=== PATIENT | female | born 1955 | race African-American/Black ===

== ENCOUNTER 2020-04-15 17:34 | Inpatient (IN) | payer MEDICARE, MEDICAID ==
[~2020-04-15] VITALS: Ht 165.1 cm; Wt 81.6 kg
[~2020-04-15 17:34] MED LIST: ALLO100T PO; AMLO10TA80 PO; CALC ACETATE PO; CLONIDINE; CORREG; INSLAN SQ; INSU100C11 SQ; INSULIN; LASIX; LORA10TA7 PO; REN800 PO; SEVE800T8 PO
[2020-04-15] MEDS ORDERED: SODIUM CHLORIDE 0.9% 500 ML IV ONE (18:26)
[2020-04-15 19:13] LABS: HEMOGLOBIN. 9.6 g/dL (12.0-16.0); MEAN CORPUSCULAR HEMOGLOBIN 29.5 pg (28.0-32.0); MEAN CORPUSCULAR VOLUME 92.3 fL (81.0-99.0); MEAN PLATELET VOLUME 9.2 fl (7.4-10.4); PLATELET 139 x1000/uL (130-400); RED BLOOD CELL COUNT 3.25 mill/uL (4.2-5.4); RED CELL DISTRIBUTION WIDTH 18.7 % (11.6-14.6)
[2020-04-15 19:18] LABS: CHLORIDE 97 mEq/L (98-107)
[2020-04-15 19:35] LABS: PROTHROMBIN TIME 10.3 sec (9.6-11.0)
[2020-04-15] MEDS ORDERED: POTASSIUM CHLORIDE 20MEQ TABLET SR PO NR (20:00)
[2020-04-15 20:13] LABS: PLATELET ESTIMATE NORMAL
[2020-04-16] VITALS (10 sets, daily range): BP systolic 80–143; BP diastolic 36–95
[2020-04-16] MEDS ORDERED: DOCUSATE SODIUM 100MG CAPSULE PO PRN (00:15)
[2020-04-16] MEDS ORDERED: CLONIDINE 0.1MG TABLET PO PRN (00:15)
[2020-04-16] MEDS ORDERED: HYDROCODONE/ACETAMINOPHEN 5/325MG TABLET PO PRN (00:15)
[2020-04-16] MEDS ORDERED: ONDANSETRON HCL 4MG/2ML INJ IV PRN (00:15)
[2020-04-16] MEDS ORDERED: ACETAMINOPHEN 325MG TABLET PO PRN (00:15)
[2020-04-16] MEDS ORDERED: IPRATROPIUM/ALBUTEROL 0.5-3(2.5)MG/3ML NEB NEB PRN (00:15)
[2020-04-16] MEDS ORDERED: DEXTROSE 50% WATER 50ML SYRINGE IV PRN (03:45)
[2020-04-16 07:11] LABS: CREATINE KINASE MB FRACTION 1.4 ng/mL (0.5-3.6)
[2020-04-16] MEDS: BLOOD SUGAR DIAGNOSTIC STRIP TEST SCH ×3 (07:20→21:32)
[2020-04-16] MEDS: INSULIN LISPRO 100 UNITS/ML SUBCUT SCH ×3 (07:50→21:40)
[2020-04-16] MEDS: HEPARIN 5000 UNITS/ML VIAL SUBCUT SCH ×2 (10:53→21:38)
[2020-04-16 11:28] LABS: PHOSPHORUS 6.1 mg/dL (2.5-4.9)
[2020-04-16 17:15] LABS: CREATINE KINASE MB FRACTION 1.2 ng/mL (0.5-3.6)
[2020-04-16] MEDS: LORATADINE 10MG TABLET PO SCH (21:38)
[2020-04-16] MEDS: ATORVASTATIN CALCIUM 20MG TABLET PO SCH (21:39)
[2020-04-17] VITALS (9 sets, daily range): BP systolic 88–140; BP diastolic 41–89
[2020-04-17 06:10] LABS: BASOPHILS % 0.7 % (0.0-2.0); HEMATOCRIT. 30.9 % (36.0-48.0); HEMOGLOBIN. 9.6 g/dL (12.0-16.0); LYMPHOCYTES % 9.7 % (20.0-50.0); MEAN CORPUSCULAR HEMOGLOBIN 29.6 pg (28.0-32.0); MEAN CORPUSCULAR VOLUME 95.1 fL (81.0-99.0); MEAN PLATELET VOLUME 9.8 fl (7.4-10.4); MONOCYTES % 14.4 % (2.0-8.0); NEUTROPHILS % 74.2 % (40.0-76.0); PLATELET 169 x1000/uL (130-400); RED BLOOD CELL COUNT 3.24 mill/uL (4.2-5.4); RED CELL DISTRIBUTION WIDTH 18.9 % (11.6-14.6)
[2020-04-17 06:15] LABS: VITAMIN B12 SERUM 1443 pg/mL (211-911)
[2020-04-17 06:24] LABS: FERRITIN 1161 ng/mL (10-291)
[2020-04-17 06:28] LABS: FOLIC ACID (FOLATE) SERUM > 20.00 ng/mL (>5.38)
[2020-04-17] MEDS: BLOOD SUGAR DIAGNOSTIC STRIP TEST SCH ×4 (07:20→21:49)
[2020-04-17] MEDS: INSULIN LISPRO 100 UNITS/ML SUBCUT SCH ×4 (07:47→21:00)
[2020-04-17] MEDS: ASPIRIN 81MG TABLET PO SCH (08:03)
[2020-04-17] MEDS: AMLODIPINE 10MG TABLET PO SCH (08:04)
[2020-04-17] MEDS: ALLOPURINOL 100 MG TABLET PO SCH (08:04)
[2020-04-17] MEDS: HEPARIN 5000 UNITS/ML VIAL SUBCUT SCH ×2 (08:04→21:49)
[2020-04-17] MEDS: FOLIC ACID/VITAMIN B COMP W-C TABLET PO SCH (11:30)
[2020-04-17] MEDS: SEVELAMER CARBONATE 800 MG TABLET PO SCH ×2 (11:50→17:43)
[2020-04-17] MEDS: FERROUS SULFATE 325MG TABLET PO SCH (17:42)
[2020-04-17 18:13] LABS: TOTAL IRON BINDING CAPACITY 370 ug/dL (250-450)
[2020-04-17] MEDS: ATORVASTATIN CALCIUM 20MG TABLET PO SCH (21:49)
[2020-04-17] MEDS: LORATADINE 10MG TABLET PO SCH (21:49)
[2020-04-18 00:25] VITALS: BP 109/51
[2020-04-18 04:42] VITALS: BP 107/72
[2020-04-18] MEDS: BLOOD SUGAR DIAGNOSTIC STRIP TEST SCH ×3 (07:45→17:20)
[2020-04-18 08:06] VITALS: BP 116/45
[2020-04-18] MEDS: INSULIN LISPRO 100 UNITS/ML SUBCUT SCH ×3 (08:12→17:38)
[2020-04-18] MEDS: FERROUS SULFATE 325MG TABLET PO SCH ×2 (08:20→17:38)
[2020-04-18] MEDS: SEVELAMER CARBONATE 800 MG TABLET PO SCH ×3 (08:20→17:38)
[2020-04-18] MEDS: HEPARIN 5000 UNITS/ML VIAL SUBCUT SCH (08:38)
[2020-04-18] MEDS: ASPIRIN 81MG TABLET PO SCH (08:39)
[2020-04-18] MEDS: FOLIC ACID/VITAMIN B COMP W-C TABLET PO SCH (08:39)
[2020-04-18] MEDS: AMLODIPINE 10MG TABLET PO SCH (08:48)
[2020-04-18] MEDS: ALLOPURINOL 100 MG TABLET PO SCH (08:56)
[2020-04-18 12:00] VITALS: BP 104/72
[2020-04-18] MEDS ORDERED: ATOR20TA PO (14:28)
[2020-04-18] MEDS ORDERED: ASPI-1160 PO (14:28)
[2020-04-18] MEDS ORDERED: FERR325T23 PO (14:28)
[2020-04-18] MEDS ORDERED: NEPVIT PO (14:28)
[2020-04-18 16:10] VITALS: BP 162/62
[2020-04-18 17:20] VITALS: BP 162/62
[2020-04-18] MEDS ORDERED: EPOETIN ALFA 4000UNITS/ML VIAL SUBCUT SCH (21:00)
== END 2020-04-18 17:40 | disposition home or self-care (01) | DRG 73 ==
LOC: ER 17:34 → 6WST 20:16 → EDBEDREQTM 20:17 → EDBEDREQ 20:17 → ENRESERV 20:52
PROVIDERS: ADMIT Internal Medicine; ATTEND Internal Medicine
PROC: 5A1D70Z Performance of Urinary Filtration, Intermittent, Less than 6 Hours Per Day (ICD-10-PCS; principal; 2020-04-18)
DX: G90.8 Other disorders of autonomic nervous system (principal); N18.6 End stage renal disease; I13.2 Hypertensive heart and chronic kidney disease with heart failure and with stage 5 chronic kidney disease, or end stage renal disease; I50.30 Unspecified diastolic (congestive) heart failure; J81.1 Chronic pulmonary edema; I95.3 Hypotension of hemodialysis; E11.22 Type 2 diabetes mellitus with diabetic chronic kidney disease; E87.6 Hypokalemia; E78.5 Hyperlipidemia, unspecified; E83.39 Other disorders of phosphorus metabolism; I35.1 Nonrheumatic aortic (valve) insufficiency; I27.21 Secondary pulmonary arterial hypertension; I07.1 Rheumatic tricuspid insufficiency; I45.10 Unspecified right bundle-branch block; I70.0 Atherosclerosis of aorta; D64.9 Anemia, unspecified; E78.00 Pure hypercholesterolemia, unspecified; G40.909 Epilepsy, unspecified, not intractable, without status epilepticus; I27.20 Pulmonary hypertension, unspecified; Z79.4 Long term (current) use of insulin; Z99.2 Dependence on renal dialysis; Z86.73 Personal history of transient ischemic attack (TIA), and cerebral infarction without residual deficits; Z79.899 Other long term (current) drug therapy
CPT/HCPCS: 36415; 70551; 71045; 80048; 80053; 80061; 82550; 82553; 82607; 82728; 82746; 82962; 83036; 83540; 83550; 84100; 84443; 84484; 85025; 93005; 93306; 93880; 93970; 95816; 99285; J0885; J1644; J1815; J7030

== ENCOUNTER 2020-05-09 11:29 | Inpatient (IN) | payer MEDICARE, MEDICAID ==
[~2020-05-09] VITALS: Ht 165.1 cm; Wt 64.2 kg
[~2020-05-09 11:29] MED LIST changes: +ASPI-1160 PO; +ATOR20TA PO; -CLONIDINE; +FERR325T23 PO; -INSULIN; +NEPVIT PO; -REN800 PO
[2020-05-09 12:51] LABS: BASOPHILS % 0.9 % (0.0-2.0); EOSINOPHILS % 1.9 % (0.0-5.0); HEMATOCRIT. 35.1 % (36.0-48.0); HEMOGLOBIN. 10.2 g/dL (12.0-16.0); LYMPHOCYTES % 15.3 % (20.0-50.0); MEAN CORPUSCULAR HEMOGLOBIN 30.7 pg (28.0-32.0); MEAN CORPUSCULAR VOLUME 105.3 fL (81.0-99.0); MEAN PLATELET VOLUME 10.3 fl (7.4-10.4); MONOCYTES % 10.3 % (2.0-8.0); NEUTROPHILS % 71.6 % (40.0-76.0); PLATELET 209 x1000/uL (130-400); RED BLOOD CELL COUNT 3.33 mill/uL (4.2-5.4); RED CELL DISTRIBUTION WIDTH 21.3 % (11.6-14.6)
[2020-05-09 13:34] LABS: CHLORIDE 103 mEq/L (98-107)
[2020-05-09] MEDS ORDERED: DEXTROSE 50% WATER 50ML SYRINGE IV ONE (14:00)
[2020-05-09] MEDS ORDERED: INSULIN REGULAR (HUMULIN R) 300UNITS/3ML IV ONE (14:00)
[2020-05-09] MEDS ORDERED: CALCIUM GLUCONATE 100MG/ML 10ML VIAL IV NR (14:00)
[2020-05-09] MEDS ORDERED: SODIUM BICARBONATE 8.4% 1 MEQ/ML 50ML SYR IV ONE (14:00)
[2020-05-09] MEDS ORDERED: LEVOFLOXACIN 750MG PREMIX 150 ML IV NR (14:00)
[2020-05-09] MEDS ORDERED: ALBUTEROL (0.083%) 2.5MG/3ML NEB HHN ONE (14:00)
[2020-05-09 15:30] VITALS: BP 147/81
[2020-05-09] MEDS ORDERED: CLONIDINE 0.1MG TABLET PO PRN (17:15)
[2020-05-09] MEDS ORDERED: ACETAMINOPHEN 325MG TABLET PO PRN (17:15)
[2020-05-09] MEDS ORDERED: ONDANSETRON HCL 4MG/2ML INJ IV PRN (18:30)
[2020-05-09 18:32] VITALS: BP 145/81
[2020-05-09] MEDS: GUAIFENESIN-DM 200MG-20MG/10ML UDC PO PRN (19:08)
[2020-05-09 20:00] VITALS: BP 155/57
[2020-05-10] VITALS: BP 120/64
[2020-05-10 04:00] VITALS: BP 129/73
[2020-05-10 08:00] VITALS: BP 140/59
[2020-05-10] MEDS: GUAIFENESIN-DM 200MG-20MG/10ML UDC PO PRN (08:19)
[2020-05-10 12:00] VITALS: BP 140/54
[2020-05-10] MEDS ORDERED: DEXTROSE 50% WATER 50ML SYRINGE IV PRN (12:15)
[2020-05-10] MEDS ORDERED: SEVELAMER CARBONATE 800 MG TABLET PO SCH (12:15)
[2020-05-10] MEDS ORDERED: INSULIN LISPRO 100 UNITS/ML SUBCUT SCH (12:15)
[2020-05-10] MEDS ORDERED: INSULIN GLARGINE UD 100 UNITS/ML SYR SUBCUT NR (14:00)
[2020-05-10 14:22] VITALS: BP 140/54
[2020-05-10] MEDS ORDERED: BLOOD SUGAR DIAGNOSTIC STRIP TEST SCH (16:45)
[2020-05-11] MEDS ORDERED: INSULIN GLARGINE UD 100 UNITS/ML SYR SUBCUT SCH (10:00)
== END 2020-05-10 15:40 | disposition home or self-care (01) | DRG 640 ==
LOC: ER 11:29 → EDBEDREQ 15:09 → 5WST 15:11 → ENRESERV 15:31
PROVIDERS: ADMIT Internal Medicine; ATTEND Internal Medicine
PROC: 5A1D70Z Performance of Urinary Filtration, Intermittent, Less than 6 Hours Per Day (ICD-10-PCS; principal; 2020-05-09)
DX: E87.5 Hyperkalemia (principal); N18.6 End stage renal disease; I13.2 Hypertensive heart and chronic kidney disease with heart failure and with stage 5 chronic kidney disease, or end stage renal disease; J98.11 Atelectasis; E87.2 Acidosis; E78.00 Pure hypercholesterolemia, unspecified; E78.5 Hyperlipidemia, unspecified; D64.9 Anemia, unspecified; E83.52 Hypercalcemia; I27.21 Secondary pulmonary arterial hypertension; E11.22 Type 2 diabetes mellitus with diabetic chronic kidney disease; I45.10 Unspecified right bundle-branch block; I36.1 Nonrheumatic tricuspid (valve) insufficiency; R74.0 Nonspecific elevation of levels of transaminase and lactic acid dehydrogenase [LDH]; I50.9 Heart failure, unspecified; Z99.2 Dependence on renal dialysis; Z79.82 Long term (current) use of aspirin; Z79.4 Long term (current) use of insulin; Z79.899 Other long term (current) drug therapy; R06.89 Other abnormalities of breathing
CPT/HCPCS: 36415; 71045; 80048; 80053; 80061; 82962; 83735; 83880; 84484; 85025; 93005; 96374; 99285; J0610; J1815; J1956; J3490

== ENCOUNTER 2021-08-14 07:19 | Inpatient (IN) | payer OTHER, MEDICAID ==
[~2021-08-14] VITALS: Ht 165.1 cm; Wt 75.9 kg
[~2021-08-14 07:19] MED LIST changes: -ALLO100T PO; -AMLO10TA80 PO; -ASPI-1160 PO; -ATOR20TA PO; -CORREG; -FERR325T23 PO; -LASIX; -LORA10TA7 PO; -NEPVIT PO
[2021-08-14] MEDS ORDERED: SODIUM CHLORIDE 0.9% 1,000 ML IV ONE (08:00)
[2021-08-14] MEDS ORDERED: LEVOFLOXACIN 750MG PREMIX 150 ML IV ONE (08:00)
[2021-08-14] MEDS ORDERED: VANCOMYCIN 1 G PREMIX 200 ML IV ONE (08:00)
[2021-08-14 08:41] LABS: BASOPHILS % 0.5 % (0.0-2.0); EOSINOPHILS % 1.8 % (0.0-5.0); HEMATOCRIT. 33.1 % (36.0-48.0); HEMOGLOBIN. 10.7 g/dL (12.0-16.0); LYMPHOCYTES % 9.3 % (20.0-50.0); MEAN CORPUSCULAR VOLUME 105.1 fL (81.0-99.0); MEAN PLATELET VOLUME 9.8 fl (7.4-10.4); MONOCYTES % 12.4 % (2.0-8.0); PLATELET 184 x1000/uL (130-400); RED BLOOD CELL COUNT 3.15 mill/uL (4.2-5.4); RED CELL DISTRIBUTION WIDTH 15.4 % (11.6-14.6)
[2021-08-14 08:48] LABS: CHLORIDE 98 mEq/L (98-107)
[2021-08-14] MEDS ORDERED: CEFTRIAXONE 1 G PREMIX 50 ML IV NR (11:00)
[2021-08-14] MEDS ORDERED: HYDROCODONE/ACETAMINOPHEN 5/325MG TABLET PO PRN (11:00)
[2021-08-14] MEDS ORDERED: DEXTROSE 50% WATER 50ML SYRINGE IV PRN (11:00)
[2021-08-14] MEDS ORDERED: ONDANSETRON HCL 4MG/2ML INJ IV PRN (11:00)
[2021-08-14] MEDS ORDERED: CLONIDINE 0.1MG TABLET PO PRN (11:00)
[2021-08-14] MEDS ORDERED: GUAIFENESIN 200MG/10ML SUGAR FREE UDC PO PRN (11:00)
[2021-08-14] MEDS ORDERED: HEPARIN 5000 UNITS/ML VIAL SUBCUT SCH (11:00)
[2021-08-14] MEDS ORDERED: NA PHOS,M-B/NA PHOS,DI-BA ENEMA 118ML PR PRN (11:00)
[2021-08-14] MEDS ORDERED: ACETAMINOPHEN 325MG TABLET PO PRN (11:00)
[2021-08-14] MEDS ORDERED: ACETAMINOPHEN 650MG SUPP PR PRN (11:00)
[2021-08-14] MEDS ORDERED: NALOXONE HCL 0.4MG/ML VIAL IV PRN (11:00)
[2021-08-14] MEDS ORDERED: MAGNESIUM/ALUMINUM HYDROXIDE/SIMETHICONE 30ML UDC PO PRN (11:00)
[2021-08-14] MEDS ORDERED: IPRATROPIUM/ALBUTEROL 0.5-3(2.5)MG/3ML NEB NEB PRN (11:00)
[2021-08-14] MEDS ORDERED: DOCUSATE SODIUM 100MG CAPSULE PO PRN (11:00)
[2021-08-14] MEDS: DIPHENHYDRAMINE 50MG/ML VIAL IV PRN ×2 (11:19→20:58)
[2021-08-14 11:30] LABS: INR 0.9; PROTHROMBIN TIME 10.1 sec (9.6-11.0)
[2021-08-14] MEDS: INSULIN LISPRO 100 UNITS/ML SUBCUT SCH ×3 (13:20→20:59)
[2021-08-14 15:20] LABS: BG BASE EXCESS 0.2 mmol/L (-2.0-2.0); BG CARBOXYHEMOGLOBIN 0.3 % (0.5-1.5); BG DEOXYHEMOGLOBIN 4.4 % (0.0-5.0); BG FRACTION INSPIRED OXYGEN 21; BG HCO3 ACT 23.7 mmol/L (22.0-26.0); BG METHEMOGLOBIN 0.2 % (0.0-1.5); BG OXYGEN SATURATION 95.6 % (92.0-98.5); BG OXYHEMOGLOBIN 95.1 % (94.0-97.0); BG PCO2 34.5 mmHg (35.0-45.0); BG PH 7.455 (7.350-7.450); BG SAMPLE SITE RIGHT RADIAL; BG TOTAL HEMOGLOBIN 10.8 g/dL (12.0-18.0); BG VENT MODE ROOM AIR
[2021-08-14 15:22] LABS: CREATINE KINASE MB FRACTION 4.1 ng/mL (0.5-3.6)
[2021-08-14 15:46] VITALS: BP 98/75
[2021-08-14 16:46] VITALS: BP 130/74
[2021-08-14] MEDS: BLOOD SUGAR DIAGNOSTIC STRIP TEST SCH ×2 (16:50→20:59)
[2021-08-14 18:00] VITALS: BP 132/83
[2021-08-14 20:00] VITALS: BP 117/73
[2021-08-14] MEDS ORDERED: FAMOTIDINE 20MG TABLET PO SCH (21:00)
[2021-08-14 21:13] LABS: HEPATITIS B SURFACE ANTIGEN NEGATIVE
[2021-08-14] MEDS: LORAZEPAM 0.5MG TABLET PO PRN (21:46)
[2021-08-14 22:00] VITALS: BP 115/91
[2021-08-14 23:27] LABS: CREATINE KINASE MB FRACTION 4.3 ng/mL (0.5-3.6)
[2021-08-15] VITALS (10 sets, daily range): BP systolic 92–146; BP diastolic 45–86
[2021-08-15] MEDS: BLOOD SUGAR DIAGNOSTIC STRIP TEST SCH ×2 (06:29→11:50)
[2021-08-15 07:14] LABS: CHLORIDE 100 mEq/L (98-107)
[2021-08-15] MEDS: INSULIN LISPRO 100 UNITS/ML SUBCUT SCH ×2 (07:18→12:20)
[2021-08-15 07:24] LABS: CREATINE KINASE 166 IU/L (26-192); CREATINE KINASE MB FRACTION 4.3 ng/mL (0.5-3.6)
[2021-08-15 07:26] LABS: HEMOGLOBIN. 10.4 g/dL (12.0-16.0); MEAN CORPUSCULAR HEMOGLOBIN 33.3 pg (28.0-32.0); MEAN CORPUSCULAR VOLUME 111.6 fL (81.0-99.0); MEAN PLATELET VOLUME 10.3 fl (7.4-10.4); PLATELET 150 x1000/uL (130-400); RED BLOOD CELL COUNT 3.14 mill/uL (4.2-5.4); RED CELL DISTRIBUTION WIDTH 16.4 % (11.6-14.6)
[2021-08-15] MEDS ORDERED: CEFTRIAXONE 1,000 MG in DEXTROSE 5% WATER 50 ML IV SCH (09:00)
[2021-08-15] MEDS ORDERED: MIDODRINE HCL 5MG TABLET PO PRN (09:00)
[2021-08-15] MEDS ORDERED: ASPIRIN 81MG TABLET PO SCH (11:00)
[2021-08-15] MEDS: LORAZEPAM 0.5MG TABLET PO PRN (11:20)
[2021-08-15] MEDS ORDERED: ASPIRIN 325MG EC TABLET PO SCH (11:45)
[2021-08-15] MEDS ORDERED: SODIUM POLYSTYRENE SULFONATE 15 G/60 ML BOT PO NR (13:00)
[2021-08-15] MEDS ORDERED: VANCOMYCIN 500 MG PREMIX 100 ML IV NR (15:00)
[2021-08-15 18:43] LABS: PLATELET ESTIMATE NORMAL
[2021-08-15] MEDS ORDERED: ATORVASTATIN CALCIUM 40MG TABLET PO SCH (21:00)
[2021-08-16] MEDS ORDERED: ASPIRIN 325MG EC TABLET PO SCH (09:00)
== END 2021-08-15 15:30 | disposition left against medical advice (07) | DRG 70 ==
LOC: ER 07:19 → 3WST 09:24 → EDBEDREQ 09:27 → EDBEDREQSVC 09:41 → EDBEDREQTM 09:41 → ENRESERV 14:09 → SUPCPDRO 14:34
PROVIDERS: ADMIT Internal Medicine; ATTEND Internal Medicine
DX: G93.40 Encephalopathy, unspecified (principal); N18.6 End stage renal disease; I21.A1 Myocardial infarction type 2; J18.9 Pneumonia, unspecified organism; I12.0 Hypertensive chronic kidney disease with stage 5 chronic kidney disease or end stage renal disease; T82.868A Thrombosis due to vascular prosthetic devices, implants and grafts, initial encounter; G90.8 Other disorders of autonomic nervous system; I95.9 Hypotension, unspecified; E87.5 Hyperkalemia; D63.1 Anemia in chronic kidney disease; E78.5 Hyperlipidemia, unspecified; E03.9 Hypothyroidism, unspecified; E11.22 Type 2 diabetes mellitus with diabetic chronic kidney disease; I27.20 Pulmonary hypertension, unspecified; E87.70 Fluid overload, unspecified; R79.89 Other specified abnormal findings of blood chemistry; R00.0 Tachycardia, unspecified; Z20.822 Contact with and (suspected) exposure to COVID-19; I08.2 Rheumatic disorders of both aortic and tricuspid valves; J32.3 Chronic sphenoidal sinusitis; Z53.29 Procedure and treatment not carried out because of patient's decision for other reasons; E78.00 Pure hypercholesterolemia, unspecified; Y83.2 Surgical operation with anastomosis, bypass or graft as the cause of abnormal reaction of the patient, or of later complication, without mention of misadventure at the time of the procedure; Z86.73 Personal history of transient ischemic attack (TIA), and cerebral infarction without residual deficits; Z99.2 Dependence on renal dialysis; Z79.4 Long term (current) use of insulin; Y92.89 Other specified places as the place of occurrence of the external cause
CPT/HCPCS: 36415; 36600; 71045; 80053; 80202; 82140; 82375; 82550; 82553; 82805; 82962; 83605; 83735; 83880; 84145; 84443; 84484; 85025; 86705; 86709; 86803; 87340; 87426; 93005; 93306; 93880; 93970; 97162; 99291; J0696; J1200; J1644; J1815; J1956; J3370; J7030; J7060

== ENCOUNTER 2021-10-15 10:13 | Emergency (ER) | payer OTHER, MEDICAID ==
[~2021-10-15] VITALS: Ht 160 cm; Wt 69.0 kg
[2021-10-15 11:08] LABS: HEMATOCRIT. 35.2 % (36.0-48.0); MEAN CORPUSCULAR HEMOGLOBIN 33.2 pg (28.0-32.0); MEAN CORPUSCULAR VOLUME 106.7 fL (81.0-99.0); MEAN PLATELET VOLUME 9.9 fl (7.4-10.4); PLATELET 219 x1000/uL (130-400); RED CELL DISTRIBUTION WIDTH 15.8 % (11.6-14.6)
[2021-10-15 11:21] LABS: PLATELET ESTIMATE NORMAL
[2021-10-15 12:08] LABS: CHLORIDE 99 mEq/L (98-107)
[2021-10-15] MEDS ORDERED: DEXTROSE 50% WATER 50ML SYRINGE IV ONE (13:15)
[2021-10-15] MEDS ORDERED: SODIUM BICARBONATE 8.4% 1 MEQ/ML 50ML SYR IV ONE (13:15)
[2021-10-15] MEDS ORDERED: CALCIUM GLUCONATE 1,000 MG in DEXT 5% WATER 100 ML IV ONE (13:15)
[2021-10-15] MEDS ORDERED: INSULIN REGULAR (HUMULIN R) 300UNITS/3ML VIAL IV ONE (13:15)
[2021-10-15] MEDS ORDERED: CALCIUM GLUCONATE 1GM PREMIX 50 ML IV SCH (13:45)
[2021-10-15 14:22] VITALS: BP 135/62
[2022-04-13] MEDS ORDERED: SODI5POW2 PO (18:25)
[2022-04-17] MEDS ORDERED: MIDO5TAB4 PO (10:36)
== END 2022-03-14 14:22 | disposition left against medical advice (07) ==
LOC: ER 10:13 → MERGE 10:13 → ER 03-14 14:22
DX: E87.5 Hyperkalemia (principal); E87.70 Fluid overload, unspecified; I10 Essential (primary) hypertension; E11.9 Type 2 diabetes mellitus without complications; Z98.890 Other specified postprocedural states; Z20.822 Contact with and (suspected) exposure to COVID-19
CPT/HCPCS: 36415; 71045; 80053; 83880; 85025; 87426; 93005; 96374; 96375; 99285; J0610; J1815; J3490; J7060

== ENCOUNTER 2021-11-07 12:58 | Inpatient (IN) | payer OTHER, MEDICAID ==
[~2021-11-07] VITALS: Ht 165.1 cm; Wt 77.6 kg
[~2021-11-07 12:58] MED LIST changes: -INSU100C11 SQ
[2021-11-07 13:53] LABS: BASOPHILS % 0.7 % (0.0-2.0); EOSINOPHILS % 4.4 % (0.0-5.0); HEMATOCRIT. 29.1 % (36.0-48.0); LYMPHOCYTES % 11.6 % (20.0-50.0); MEAN CORPUSCULAR HEMOGLOBIN 34.6 pg (28.0-32.0); MEAN CORPUSCULAR VOLUME 112.1 fL (81.0-99.0); MEAN PLATELET VOLUME 10.5 fl (7.4-10.4); MONOCYTES % 11.2 % (2.0-8.0); NEUTROPHILS % 72.1 % (40.0-76.0); PLATELET 151 x1000/uL (130-400); RED CELL DISTRIBUTION WIDTH 16.2 % (11.6-14.6)
[2021-11-07 14:01] LABS: CHLORIDE 105 mEq/L (98-107)
[2021-11-07 14:10] LABS: PLATELET ESTIMATE NORMAL
[2021-11-07] MEDS ORDERED: FUROSEMIDE 100MG/10ML VIAL IV STA (14:29)
[2021-11-07] MEDS ORDERED: CALCIUM GLUCONATE 100MG/ML 10ML VIAL IV ONE (14:30)
[2021-11-07] MEDS ORDERED: DEXTROSE 50% WATER 50ML SYRINGE IV ONE (14:30)
[2021-11-07] MEDS ORDERED: SODIUM POLYSTYRENE SULFONATE 15 G/60 ML BOT PO ONE (14:30)
[2021-11-07] MEDS ORDERED: INSULIN REGULAR (HUMULIN R) 300UNITS/3ML VIAL IV ONE (14:30)
[2021-11-07] MEDS ORDERED: ALBUTEROL (0.083%) 2.5MG/3ML NEB HHN ONE (14:30)
[2021-11-07] MEDS ORDERED: LIDOCAINE HCL/PF 1% 10 MG/ML 5ML VIAL ONE (14:58)
[2021-11-07] MEDS ORDERED: HEPARIN 1000 UNITS/ML 10ML ONE (15:00)
[2021-11-07] MEDS ORDERED: CALCIUM GLUCONATE 1000 MG in DEXTROSE 5% WATER 100 ML IV NR (15:15)
[2021-11-07] MEDS ORDERED: SODIUM POLYSTYRENE SULFONATE 15 G/60 ML BOT PO NR (15:15)
[2021-11-07 15:23] LABS: HEPATITIS B SURFACE ANTIGEN NEGATIVE
[2021-11-07] MEDS ORDERED: GUAIFENESIN 200MG/10ML SUGAR FREE UDC PO PRN (16:30)
[2021-11-07] MEDS ORDERED: LORAZEPAM 0.5MG TABLET PO PRN (16:30)
[2021-11-07] MEDS ORDERED: HYDROCODONE/ACETAMINOPHEN 5/325MG TABLET PO PRN (16:30)
[2021-11-07] MEDS ORDERED: NA PHOS,M-B/NA PHOS,DI-BA ENEMA 118ML PR PRN (16:30)
[2021-11-07] MEDS ORDERED: ACETAMINOPHEN 325MG TABLET PO PRN (16:30)
[2021-11-07] MEDS ORDERED: MAGNESIUM/ALUMINUM HYDROXIDE/SIMETHICONE 30ML UDC PO PRN (16:30)
[2021-11-07] MEDS ORDERED: ONDANSETRON HCL 4MG/2ML INJ IV PRN (16:30)
[2021-11-07] MEDS ORDERED: IPRATROPIUM/ALBUTEROL 0.5-3(2.5)MG/3ML NEB NEB PRN (16:30)
[2021-11-07] MEDS ORDERED: DIPHENHYDRAMINE 50MG/ML VIAL IV PRN (16:30)
[2021-11-07] MEDS ORDERED: CLONIDINE 0.1MG TABLET PO PRN (16:30)
[2021-11-07] MEDS ORDERED: DOCUSATE SODIUM 100MG CAPSULE PO PRN (16:30)
[2021-11-07] MEDS ORDERED: ACETAMINOPHEN 650MG SUPP PR PRN (16:30)
[2021-11-07] MEDS ORDERED: DEXTROSE 50% WATER 50ML SYRINGE IV PRN (16:30)
[2021-11-07] MEDS ORDERED: HYDRALAZINE 20MG/ML VIAL IV PRN (16:45)
[2021-11-07] MEDS: INSULIN LISPRO 100 UNITS/ML SUBCUT SCH ×2 (18:20→21:27)
[2021-11-07] MEDS: PANTOPRAZOLE SODIUM 40 MG/VIAL IV SCH (18:22)
[2021-11-07] MEDS: ASPIRIN 81MG TABLET PO SCH (18:22)
[2021-11-07] MEDS: AMLODIPINE 5MG TABLET PO SCH (18:22)
[2021-11-07] MEDS: BLOOD SUGAR DIAGNOSTIC STRIP TEST SCH ×2 (18:40→21:13)
[2021-11-07 22:30] VITALS: BP 151/59
[2021-11-07 22:42] VITALS: BP 157/59
[2021-11-08] VITALS (19 sets, daily range): BP systolic 128–164; BP diastolic 45–87
[2021-11-08] MEDS: INSULIN LISPRO 100 UNITS/ML SUBCUT SCH ×3 (06:21→17:15)
[2021-11-08] MEDS: BLOOD SUGAR DIAGNOSTIC STRIP TEST SCH ×3 (06:21→16:57)
[2021-11-08 07:45] LABS: CHLORIDE 105 mEq/L (98-107)
[2021-11-08 07:54] LABS: CREATINE KINASE 301 IU/L (26-192)
[2021-11-08 07:56] LABS: CREATINE KINASE MB FRACTION 7.7 ng/mL (0.5-3.6); PROTHROMBIN TIME 10.8 sec (9.6-11.0)
[2021-11-08] MEDS ORDERED: ALTEPLASE 2MG/VIAL ITC ONE (08:15)
[2021-11-08] MEDS ORDERED: IOHEXOL-300 100 ML BOTTLE ONE (08:34)
[2021-11-08] MEDS ORDERED: LIDOCAINE HCL 1% 30ML VIAL (10MG/ML) ONE (08:34)
[2021-11-08] MEDS ORDERED: HEPARIN 1000 UNITS/ML 10ML ONE (08:34)
[2021-11-08] MEDS ORDERED: CEFAZOLIN 1000MG PREMIX 50 ML IV ONE ×2 (08:50→08:57)
[2021-11-08] MEDS ORDERED: FENTANYL CITRATE/PF 50MCG/ML 2ML VIAL ONE (08:57)
[2021-11-08] MEDS: ASPIRIN 81MG TABLET PO SCH (09:00)
[2021-11-08] MEDS: AMLODIPINE 5MG TABLET PO SCH (09:00)
[2021-11-08] MEDS ORDERED: FENTANYL CITRATE/PF 50MCG/ML 2ML VIAL IV ONE (09:00)
[2021-11-08] MEDS: PANTOPRAZOLE SODIUM 40 MG/VIAL IV SCH (11:07)
[2021-11-08 13:00] LABS: BASOPHILS % 0.6 % (0.0-2.0); EOSINOPHILS % 4.7 % (0.0-5.0); HEMATOCRIT. 30.4 % (36.0-48.0); HEMOGLOBIN. 9.4 g/dL (12.0-16.0); LYMPHOCYTES % 11.2 % (20.0-50.0); MEAN CORPUSCULAR HEMOGLOBIN 34.2 pg (28.0-32.0); MEAN PLATELET VOLUME 10.8 fl (7.4-10.4); MONOCYTES % 13.1 % (2.0-8.0); NEUTROPHILS % 70.4 % (40.0-76.0); PLATELET 138 x1000/uL (130-400); RED BLOOD CELL COUNT 2.74 mill/uL (4.2-5.4); RED CELL DISTRIBUTION WIDTH 15.9 % (11.6-14.6)
[2021-11-09] MEDS ORDERED: FAMOTIDINE 20MG TABLET PO SCH (09:00)
== END 2021-11-08 19:41 | disposition home or self-care (01) | DRG 252 ==
LOC: ER 13:10 → 5WST 14:28 → EDBEDREQTM 14:29 → EDBEDREQ 14:29 → ENRESERV 21:28
PROVIDERS: ADMIT Internal Medicine; ATTEND Internal Medicine
PROC: 02HV33Z Insertion of Infusion Device into Superior Vena Cava, Percutaneous Approach (ICD-10-PCS; principal; 2021-11-07)
PROC: B548ZZA Ultrasonography of Superior Vena Cava, Guidance (ICD-10-PCS; 2021-11-07)
PROC: 5A1D70Z Performance of Urinary Filtration, Intermittent, Less than 6 Hours Per Day (ICD-10-PCS; 2021-11-07)
PROC: 037Y3ZZ Dilation of Upper Artery, Percutaneous Approach (ICD-10-PCS; 2021-11-08)
PROC: 3E03317 Introduction of Other Thrombolytic into Peripheral Vein, Percutaneous Approach (ICD-10-PCS; 2021-11-08)
DX: T82.511A Breakdown (mechanical) of surgically created arteriovenous shunt, initial encounter (principal); N18.6 End stage renal disease; I50.43 Acute on chronic combined systolic (congestive) and diastolic (congestive) heart failure; I13.2 Hypertensive heart and chronic kidney disease with heart failure and with stage 5 chronic kidney disease, or end stage renal disease; E46 Unspecified protein-calorie malnutrition; E11.22 Type 2 diabetes mellitus with diabetic chronic kidney disease; E87.5 Hyperkalemia; D64.9 Anemia, unspecified; Z20.822 Contact with and (suspected) exposure to COVID-19; D63.8 Anemia in other chronic diseases classified elsewhere; E78.00 Pure hypercholesterolemia, unspecified; E78.5 Hyperlipidemia, unspecified; I95.3 Hypotension of hemodialysis; E11.65 Type 2 diabetes mellitus with hyperglycemia; Y83.8 Other surgical procedures as the cause of abnormal reaction of the patient, or of later complication, without mention of misadventure at the time of the procedure; Z99.2 Dependence on renal dialysis; Z68.28 Body mass index [BMI] 28.0-28.9, adult; Z79.4 Long term (current) use of insulin; Z87.01 Personal history of pneumonia (recurrent); Y92.89 Other specified places as the place of occurrence of the external cause; R79.89 Other specified abnormal findings of blood chemistry
CPT/HCPCS: 36415; 36556; 36905; 71045; 76937; 80053; 82550; 82553; 82962; 83036; 83880; 84132; 84443; 84484; 85025; 86705; 86709; 86803; 87340; 87426; 93005; 93970; 99152; 99153; 99291; C1725; C1752; C1766; C1769; C1887; C9113; J0610; J0690; J1644; J1815; J1940; J2997; J3010; J3490; J7060; Q9967; G0500

== ENCOUNTER 2022-04-06 08:26 | Inpatient (IN) | payer OTHER, MEDICAID ==
[~2022-04-06] VITALS: Ht 165.1 cm; Wt 66.8 kg
[2022-04-06] MEDS ORDERED: SODIUM CHLORIDE 0.9% 1,000 ML IV ONE (09:00)
[2022-04-06 10:25] LABS: CHLORIDE 116 mEq/L (98-107)
[2022-04-06 10:31] LABS: HEMATOCRIT. 25.2 % (36.0-48.0); HEMOGLOBIN. 7.8 g/dL (12.0-16.0); MEAN CORPUSCULAR VOLUME 107.5 fL (81.0-99.0); MEAN PLATELET VOLUME 9.3 fl (7.4-10.4); PLATELET 135 x1000/uL (130-400); RED BLOOD CELL COUNT 2.35 mill/uL (4.2-5.4); RED CELL DISTRIBUTION WIDTH 17.8 % (11.6-14.6)
[2022-04-06 10:33] LABS: ETHANOL BLOOD < 10 mg/dL
[2022-04-06] MEDS ORDERED: POTASSIUM CHLORIDE 20MEQ TABLET SR PO NR ×2 (11:45→13:30)
[2022-04-06 11:52] LABS: PLATELET ESTIMATE NORMAL
[2022-04-06] MEDS ORDERED: CLONIDINE 0.1MG TABLET PO PRN (13:15)
[2022-04-06] MEDS ORDERED: DEXTROSE 50% WATER 50ML SYRINGE IV PRN ×2 (13:15→21:15)
[2022-04-06] MEDS ORDERED: LORAZEPAM 0.5MG TABLET PO PRN (13:15)
[2022-04-06] MEDS ORDERED: ONDANSETRON HCL 4MG/2ML INJ IV PRN (13:15)
[2022-04-06] MEDS ORDERED: NA PHOS,M-B/NA PHOS,DI-BA ENEMA 118ML PR PRN (13:15)
[2022-04-06] MEDS ORDERED: DOCUSATE SODIUM 100MG CAPSULE PO PRN (13:15)
[2022-04-06] MEDS ORDERED: IPRATROPIUM/ALBUTEROL 0.5-3(2.5)MG/3ML NEB NEB PRN (13:15)
[2022-04-06] MEDS ORDERED: GUAIFENESIN 200MG/10ML SUGAR FREE UDC PO PRN (13:15)
[2022-04-06] MEDS ORDERED: MAGNESIUM/ALUMINUM HYDROXIDE/SIMETHICONE 30ML UDC PO PRN (13:15)
[2022-04-06] MEDS ORDERED: HYDROCODONE/ACETAMINOPHEN 5/325MG TABLET PO PRN (13:15)
[2022-04-06] MEDS ORDERED: NALOXONE HCL 0.4MG/ML VIAL IV PRN (13:30)
[2022-04-06] MEDS ORDERED: MAGNESIUM 1 G PREMIX 100 ML IV NR (14:00)
[2022-04-06] MEDS: BLOOD SUGAR DIAGNOSTIC STRIP TEST SCH ×2 (14:57→16:00)
[2022-04-06] MEDS ORDERED: CALCIUM GLUCONATE 1GM PREMIX 50 ML IV NR (15:00)
[2022-04-06] MEDS ORDERED: CEFTRIAXONE 1 G PREMIX 50 ML IV SCH (16:00)
[2022-04-06 16:15] LABS: HEMATOCRIT 37.2 % (36.0-48.0); HEMOGLOBIN 11.7 g/dL (12.0-16.0)
[2022-04-06 16:41] LABS: CREATINE KINASE MB FRACTION 2.4 ng/mL (0.5-3.6)
[2022-04-06] MEDS ORDERED: BLOOD SUGAR DIAGNOSTIC STRIP TEST SCH (18:00)
[2022-04-06 20:00] VITALS: BP 86/26
[2022-04-06] MEDS: FAMOTIDINE 20MG TABLET PO SCH (21:35)
[2022-04-06] MEDS: INSULIN LISPRO 100 UNITS/ML SUBCUT SCH (21:36)
[2022-04-06] MEDS: DIPHENHYDRAMINE 50MG/ML VIAL IV PRN (21:37)
[2022-04-07] VITALS (7 sets, daily range): BP systolic 84–126; BP diastolic 19–86
[2022-04-07 02:14] LABS: CREATINE KINASE MB FRACTION 2.5 ng/mL (0.5-3.6)
[2022-04-07] MEDS: DIPHENHYDRAMINE 50MG/ML VIAL IV PRN (03:46)
[2022-04-07] MEDS: ACETAMINOPHEN 650MG/20.3ML UDC GT PRN (04:23)
[2022-04-07] MEDS: BLOOD SUGAR DIAGNOSTIC STRIP TEST SCH ×4 (06:26→20:58)
[2022-04-07] MEDS: INSULIN LISPRO 100 UNITS/ML SUBCUT SCH ×4 (06:27→20:59)
[2022-04-07] MEDS ORDERED: BLOOD SUGAR DIAGNOSTIC STRIP TEST SCH (06:40)
[2022-04-07] MEDS ORDERED: INSULIN LISPRO 100 UNITS/ML SUBCUT SCH (07:10)
[2022-04-07 08:53] LABS: EOSINOPHILS % 2.7 % (0.0-5.0); HEMATOCRIT. 38.4 % (36.0-48.0); HEMOGLOBIN. 11.8 g/dL (12.0-16.0); LYMPHOCYTES % 7.7 % (20.0-50.0); MEAN CORPUSCULAR HEMOGLOBIN 32.8 pg (28.0-32.0); MEAN CORPUSCULAR VOLUME 106.2 fL (81.0-99.0); MEAN PLATELET VOLUME 9.7 fl (7.4-10.4); MONOCYTES % 14.4 % (2.0-8.0); NEUTROPHILS % 74.2 % (40.0-76.0); PLATELET 193 x1000/uL (130-400); RED BLOOD CELL COUNT 3.62 mill/uL (4.2-5.4); RED CELL DISTRIBUTION WIDTH 18.6 % (11.6-14.6)
[2022-04-07 09:57] LABS: CHLORIDE 95 mEq/L (98-107)
[2022-04-07] MEDS ORDERED: SODIUM POLYSTYRENE SULFONATE 15 G/60 ML BOT PO SCH (11:00)
[2022-04-07] MEDS ORDERED: SODIUM BICARBONATE 8.4% 1 MEQ/ML 50ML SYR IV SCH (11:00)
[2022-04-07] MEDS ORDERED: MIDODRINE HCL 5MG TABLET PO SCH (11:00)
[2022-04-07] MEDS ORDERED: ALBUTEROL (0.083%) 2.5MG/3ML NEB HHN NR (11:30)
[2022-04-07] MEDS ORDERED: CALCIUM GLUCONATE 1GM PREMIX 50 ML IV NR (12:00)
[2022-04-07] MEDS: MIDODRINE HCL 5MG TABLET PO SCH ×2 (14:38→18:33)
[2022-04-07] MEDS ORDERED: CEFTRIAXONE 1 G PREMIX 50 ML IV SCH (18:00)
[2022-04-07] MEDS: CEFTRIAXONE 1,000 MG in DEXTROSE 5% WATER 50 ML IV SCH (18:33)
[2022-04-07 21:30] LABS: HEPATITIS B SURFACE ANTIGEN NEGATIVE
[2022-04-07] MEDS: FAMOTIDINE 20MG TABLET PO SCH (22:13)
[2022-04-08] VITALS: BP 97/56
[2022-04-08 04:00] VITALS: BP 99/58
[2022-04-08] MEDS: ACETAMINOPHEN 650MG/20.3ML UDC GT PRN (05:30)
[2022-04-08] MEDS: INSULIN LISPRO 100 UNITS/ML SUBCUT SCH ×4 (05:31→21:53)
[2022-04-08] MEDS: BLOOD SUGAR DIAGNOSTIC STRIP TEST SCH ×4 (05:31→21:54)
[2022-04-08 07:35] LABS: HEMATOCRIT. 35.7 % (36.0-48.0); HEMOGLOBIN. 11.1 g/dL (12.0-16.0); MEAN CORPUSCULAR HEMOGLOBIN 33.2 pg (28.0-32.0); MEAN CORPUSCULAR VOLUME 107.1 fL (81.0-99.0); MEAN PLATELET VOLUME 9.4 fl (7.4-10.4); PLATELET 179 x1000/uL (130-400); RED BLOOD CELL COUNT 3.33 mill/uL (4.2-5.4); RED CELL DISTRIBUTION WIDTH 18.1 % (11.6-14.6)
[2022-04-08 07:47] LABS: CHLORIDE 95 mEq/L (98-107)
[2022-04-08 08:00] VITALS: BP 105/40
[2022-04-08] MEDS: MIDODRINE HCL 5MG TABLET PO SCH ×3 (09:21→16:43)
[2022-04-08] MEDS ORDERED: IOHEXOL-350 100 ML BOTTLE ONE (09:29)
[2022-04-08] MEDS: DOXYCYCLINE HYCLATE 100MG CAPSULE PO SCH ×2 (11:23→21:36)
[2022-04-08] MEDS: METRONIDAZOLE 500MG TABLET PO SCH ×3 (11:23→22:21)
[2022-04-08 12:00] VITALS: BP 140/50
[2022-04-08 12:38] LABS: PLATELET ESTIMATE NORMAL
[2022-04-08] MEDS: DIPHENHYDRAMINE 50MG/ML VIAL IV PRN (13:47)
[2022-04-08 16:00] VITALS: BP 150/52
[2022-04-08] MEDS: CEFTRIAXONE 1,000 MG in DEXTROSE 5% WATER 50 ML IV SCH (16:44)
[2022-04-08 20:00] VITALS: BP 132/44
[2022-04-08] MEDS: FAMOTIDINE 20MG TABLET PO SCH (21:36)
[2022-04-09] VITALS: BP 134/46
[2022-04-09 04:00] VITALS: BP 106/39
[2022-04-09] MEDS: METRONIDAZOLE 500MG TABLET PO SCH (06:07)
[2022-04-09] MEDS: BLOOD SUGAR DIAGNOSTIC STRIP TEST SCH (06:40)
[2022-04-09] MEDS: INSULIN LISPRO 100 UNITS/ML SUBCUT SCH (07:10)
[2022-04-09 08:00] VITALS: BP 129/51
[2022-04-09] MEDS: DOXYCYCLINE HYCLATE 100MG CAPSULE PO SCH (09:03)
[2022-04-09] MEDS: MIDODRINE HCL 5MG TABLET PO SCH (09:09)
[2022-04-09 10:46] VITALS: BP 129/51
== END 2022-04-09 11:25 | disposition home or self-care (01) | DRG 637 ==
LOC: ER 08:26 → EDBEDREQ 12:28 → EDBEDREQTM 12:28 → EDBEDREQ 13:11 → ENRESERV 13:52 → 7EST 19:43
PROVIDERS: ADMIT Internal Medicine; ATTEND Internal Medicine
PROC: 5A1D70Z Performance of Urinary Filtration, Intermittent, Less than 6 Hours Per Day (ICD-10-PCS; principal; 2022-04-07)
PROC: 5A1D70Z Performance of Urinary Filtration, Intermittent, Less than 6 Hours Per Day (ICD-10-PCS; 2022-04-08)
DX: E11.649 Type 2 diabetes mellitus with hypoglycemia without coma (principal); G93.41 Metabolic encephalopathy; I50.33 Acute on chronic diastolic (congestive) heart failure; E46 Unspecified protein-calorie malnutrition; I13.2 Hypertensive heart and chronic kidney disease with heart failure and with stage 5 chronic kidney disease, or end stage renal disease; N18.6 End stage renal disease; E83.42 Hypomagnesemia; I95.3 Hypotension of hemodialysis; D63.8 Anemia in other chronic diseases classified elsewhere; E11.22 Type 2 diabetes mellitus with diabetic chronic kidney disease; E83.51 Hypocalcemia; E87.5 Hyperkalemia; E87.6 Hypokalemia; D72.825 Bandemia; I50.9 Heart failure, unspecified; L98.9 Disorder of the skin and subcutaneous tissue, unspecified; I08.1 Rheumatic disorders of both mitral and tricuspid valves; I44.0 Atrioventricular block, first degree; R21 Rash and other nonspecific skin eruption; R26.2 Difficulty in walking, not elsewhere classified; E78.2 Mixed hyperlipidemia; G90.8 Other disorders of autonomic nervous system; Z87.01 Personal history of pneumonia (recurrent); Z99.2 Dependence on renal dialysis
CPT/HCPCS: 36415; 71045; 71275; 76700; 80053; 80320; 82270; 82330; 82550; 82553; 82962; 83540; 83550; 83605; 83735; 84132; 84145; 84443; 84484; 85014; 85018; 85025; 85044; 86140; 86705; 86709; 86803; 87340; 93005; 93306; 93970; 97162; 99291; J0610; J0696; J1200; J1815; J3475; J3490; J7030; J7060; Q9967; G0480

== ENCOUNTER 2022-04-18 11:03 | Emergency (ER) | payer OTHER, MEDICAID ==
[~2022-04-18] VITALS: Ht 162.6 cm; Wt 60.0 kg
[~2022-04-18 11:03] MED LIST changes: -CALC ACETATE PO; +MIDO5TAB4 PO; +SODI5POW2 PO
[2022-04-18 11:22] VITALS: BP 110/81
== END 2022-04-18 15:14 | disposition left against medical advice (07) ==
LOC: ER 11:03
DX: Z53.21 Procedure and treatment not carried out due to patient leaving prior to being seen by health care provider (principal)
CPT/HCPCS: 93005

== ENCOUNTER 2022-08-29 05:14 | Inpatient (IN) | payer OTHER, MEDICAID ==
[~2022-08-29] VITALS: Ht 165.1 cm; Wt 73.0 kg
[2022-08-29 11:55] LABS: BASOPHILS % 0.5 % (0.0-2.0); HEMATOCRIT. 33.2 % (36.0-48.0); HEMOGLOBIN. 10.3 g/dL (12.0-16.0); LYMPHOCYTES % 8.8 % (20.0-50.0); MEAN CORPUSCULAR HEMOGLOBIN 34.2 pg (28.0-32.0); MEAN CORPUSCULAR VOLUME 110.2 fL (81.0-99.0); MEAN PLATELET VOLUME 10.1 fl (7.4-10.4); MONOCYTES % 11.5 % (2.0-8.0); NEUTROPHILS % 77.2 % (40.0-76.0); PLATELET 176 x1000/uL (130-400); RED BLOOD CELL COUNT 3.01 mill/uL (4.2-5.4); RED CELL DISTRIBUTION WIDTH 15.6 % (11.6-14.6)
[2022-08-29 12:03] LABS: CHLORIDE 94 mEq/L (98-107)
[2022-08-29 12:26] LABS: PLATELET ESTIMATE NORMAL
[2022-08-29] MEDS ORDERED: INSULIN REGULAR (HUMULIN R) 300UNITS/3ML VIAL IV ONE (12:30)
[2022-08-29] MEDS ORDERED: SODIUM BICARBONATE 8.4% 1 MEQ/ML 50ML SYR IV ONE (12:30)
[2022-08-29] MEDS ORDERED: CALCIUM CHLORIDE 1GM/10ML SYR IV ONE (12:30)
[2022-08-29] MEDS ORDERED: ALBUTEROL (0.083%) 2.5MG/3ML NEB HHN ONE (12:30)
[2022-08-29] MEDS ORDERED: DEXTROSE 50% WATER 50ML SYRINGE IV ONE (12:30)
[2022-08-29 13:00] VITALS: BP 115/55
[2022-08-29] MEDS ORDERED: ONDANSETRON HCL 4MG/2ML INJ IV PRN (13:45)
[2022-08-29] MEDS ORDERED: ACETAMINOPHEN 325MG TABLET PO PRN (13:45)
[2022-08-29 14:00] VITALS: BP 116/55
[2022-08-29] MEDS ORDERED: DEXTROSE 50% WATER 50ML SYRINGE IV PRN (14:15)
[2022-08-29] MEDS: INSULIN LISPRO 100 UNITS/ML SUBCUT SCH ×4 (14:30→23:54)
[2022-08-29 15:00] VITALS: BP 114/57
[2022-08-29] MEDS: BLOOD SUGAR DIAGNOSTIC STRIP TEST SCH ×3 (15:25→21:46)
[2022-08-29 16:00] VITALS: BP 115/55
[2022-08-29 16:46] VITALS: BP 111/54
[2022-08-29 16:47] VITALS: BP 114/55
[2022-08-29] MEDS: MIDODRINE HCL 5MG TABLET PO SCH (21:57)
[2022-08-30] VITALS (17 sets, daily range): BP systolic 88–132; BP diastolic 40–69
[2022-08-30] MEDS ORDERED: ACET-2708 MT (01:17)
[2022-08-30] MEDS: IPRATROPIUM/ALBUTEROL 0.5-3(2.5)MG/3ML NEB HHN SCH ×4 (05:18→19:54)
[2022-08-30] MEDS: INSULIN LISPRO 100 UNITS/ML SUBCUT SCH ×4 (06:41→21:00)
[2022-08-30] MEDS: BLOOD SUGAR DIAGNOSTIC STRIP TEST SCH ×4 (06:42→21:00)
[2022-08-30 07:24] LABS: BASOPHILS % 0.7 % (0.0-2.0); EOSINOPHILS % 5.1 % (0.0-5.0); HEMATOCRIT. 30.9 % (36.0-48.0); HEMOGLOBIN. 9.5 g/dL (12.0-16.0); LYMPHOCYTES % 13.2 % (20.0-50.0); MEAN CORPUSCULAR HEMOGLOBIN 34.2 pg (28.0-32.0); MEAN CORPUSCULAR VOLUME 110.9 fL (81.0-99.0); MEAN PLATELET VOLUME 9.7 fl (7.4-10.4); MONOCYTES % 12.6 % (2.0-8.0); NEUTROPHILS % 68.4 % (40.0-76.0); PLATELET 163 x1000/uL (130-400); RED BLOOD CELL COUNT 2.78 mill/uL (4.2-5.4); RED CELL DISTRIBUTION WIDTH 15.9 % (11.6-14.6)
[2022-08-30] MEDS: MIDODRINE HCL 5MG TABLET PO SCH ×3 (08:29→17:48)
[2022-08-30 18:42] LABS: HEPATITIS B SURFACE ANTIGEN NEGATIVE
[2022-08-31 00:30] VITALS: BP 103/60
[2022-08-31] MEDS: IPRATROPIUM/ALBUTEROL 0.5-3(2.5)MG/3ML NEB HHN SCH ×4 (02:05→21:00)
[2022-08-31 04:00] VITALS: BP 108/54
[2022-08-31] MEDS: BLOOD SUGAR DIAGNOSTIC STRIP TEST SCH ×4 (06:46→21:48)
[2022-08-31] MEDS: INSULIN LISPRO 100 UNITS/ML SUBCUT SCH ×4 (06:46→21:00)
[2022-08-31] MEDS: MIDODRINE HCL 5MG TABLET PO SCH ×3 (08:24→17:32)
[2022-08-31 08:58] VITALS: BP 105/40
[2022-08-31 12:00] VITALS: BP 134/40
[2022-08-31 16:00] VITALS: BP 117/35
[2022-08-31 20:00] VITALS: BP 112/57
[2022-08-31] MEDS ORDERED: PROMETHAZINE HCL 6.25 MG/5 ML 118ML PO PRN (22:00)
[2022-08-31] MEDS: PROMETHAZINE/DEXTROMETHORPHAN 6.25-15MG/5ML BOTTLE 120ML PO PRN (23:05)
[2022-09-01] VITALS (12 sets, daily range): BP systolic 103–145; BP diastolic 50–69
[2022-09-01] MEDS: IPRATROPIUM/ALBUTEROL 0.5-3(2.5)MG/3ML NEB HHN SCH ×2 (02:15→08:28)
[2022-09-01] MEDS: BLOOD SUGAR DIAGNOSTIC STRIP TEST SCH (06:12)
[2022-09-01] MEDS: INSULIN LISPRO 100 UNITS/ML SUBCUT SCH (06:12)
[2022-09-01] MEDS: PROMETHAZINE/DEXTROMETHORPHAN 6.25-15MG/5ML BOTTLE 120ML PO PRN (06:15)
[2022-09-01] MEDS: MIDODRINE HCL 5MG TABLET PO SCH (09:00)
[2022-09-01 11:41] LABS: BASOPHILS % 0.6 % (0.0-2.0); HEMOGLOBIN. 10.1 g/dL (12.0-16.0); LYMPHOCYTES % 7.6 % (20.0-50.0); MEAN CORPUSCULAR HEMOGLOBIN 34.6 pg (28.0-32.0); MEAN CORPUSCULAR VOLUME 105.6 fL (81.0-99.0); MEAN PLATELET VOLUME 9.5 fl (7.4-10.4); MONOCYTES % 14.5 % (2.0-8.0); NEUTROPHILS % 73.3 % (40.0-76.0); PLATELET 176 x1000/uL (130-400); RED BLOOD CELL COUNT 2.93 mill/uL (4.2-5.4); RED CELL DISTRIBUTION WIDTH 14.9 % (11.6-14.6)
== END 2022-09-01 11:59 | disposition home or self-care (01) | DRG 640 ==
LOC: ER 05:14 → 8WST 13:28 → EDBEDREQ 13:44 → EDBEDREQTM 13:44
PROVIDERS: ADMIT Internal Medicine; ATTEND Internal Medicine
PROC: 5A1D70Z Performance of Urinary Filtration, Intermittent, Less than 6 Hours Per Day (ICD-10-PCS; principal; 2022-08-29)
PROC: 5A1D70Z Performance of Urinary Filtration, Intermittent, Less than 6 Hours Per Day (ICD-10-PCS; 2022-08-30)
PROC: 5A1D70Z Performance of Urinary Filtration, Intermittent, Less than 6 Hours Per Day (ICD-10-PCS; 2022-09-01)
DX: E87.5 Hyperkalemia (principal); N18.6 End stage renal disease; I12.0 Hypertensive chronic kidney disease with stage 5 chronic kidney disease or end stage renal disease; E44.0 Moderate protein-calorie malnutrition; E87.1 Hypo-osmolality and hyponatremia; E11.22 Type 2 diabetes mellitus with diabetic chronic kidney disease; Z20.822 Contact with and (suspected) exposure to COVID-19; I95.3 Hypotension of hemodialysis; D63.8 Anemia in other chronic diseases classified elsewhere; Z68.26 Body mass index [BMI] 26.0-26.9, adult; E78.00 Pure hypercholesterolemia, unspecified; R74.01 Elevation of levels of liver transaminase levels; Z91.81 History of falling; Z99.2 Dependence on renal dialysis; Z87.01 Personal history of pneumonia (recurrent); W01.0XXA Fall on same level from slipping, tripping and stumbling without subsequent striking against object, initial encounter; Y93.89 Activity, other specified; Y92.89 Other specified places as the place of occurrence of the external cause; Y99.8 Other external cause status
CPT/HCPCS: 36415; 71045; 72170; 73030; 80048; 80053; 82962; 84132; 84145; 85025; 86705; 86709; 86803; 87340; 87426; 90935; 93005; 94640; 97162; 99291; J1815; J3490; Q0169

== ENCOUNTER 2022-12-26 10:05 | Inpatient (IN) | payer OTHER, MEDICAID ==
[~2022-12-26] VITALS: Ht 165.1 cm; Wt 72.7 kg
[2022-12-26] VITALS (20 sets, daily range): BP systolic 76–139; BP diastolic 31–103
[~2022-12-26 10:05] MED LIST changes: +ACET-2708 MT; -MIDO5TAB4 PO; -SODI5POW2 PO
[2022-12-26] MEDS ORDERED: SODIUM CHLORIDE 0.9% 1,000 ML IV ONE (10:15)
[2022-12-26] MEDS ORDERED: VANCOMYCIN 1G PREMIX 200 ML IV ONE (10:45)
[2022-12-26] MEDS ORDERED: PIPERACILLIN/TAZ 3.375G PREMIX 50 ML IV ONE (10:45)
[2022-12-26 10:48] LABS: HEMATOCRIT. 36.4 % (36.0-48.0); HEMOGLOBIN. 11.9 g/dL (12.0-16.0); MEAN CORPUSCULAR HEMOGLOBIN 34.3 pg (28.0-32.0); MEAN PLATELET VOLUME 9.5 fl (7.4-10.4); PLATELET 138 x1000/uL (130-400); RED BLOOD CELL COUNT 3.47 mill/uL (4.2-5.4); RED CELL DISTRIBUTION WIDTH 16.3 % (11.6-14.6)
[2022-12-26 11:01] LABS: CHLORIDE 95 mEq/L (98-107)
[2022-12-26 11:41] LABS: NUCLEATED RED BLOOD CELLS 1 /100 WBC
[2022-12-26 11:42] LABS: PLATELET ESTIMATE NORMAL
[2022-12-26 11:55] LABS: PROTHROMBIN TIME 10.3 sec (9.6-11.0)
[2022-12-26] MEDS ORDERED: PHENYLEPHRINE 100 MG in DEXT 5% WATER 240 ML IV PRN (13:45)
[2022-12-26] MEDS: PHENYLEPHRINE 100 MG in DEXT 5% WATER 240 ML IV PRN (13:57)
[2022-12-26] MEDS: PANTOPRAZOLE SODIUM 40 MG/VIAL IV SCH (15:00)
[2022-12-26] MEDS ORDERED: ACETAMINOPHEN 325MG TABLET PO PRN (15:00)
[2022-12-26] MEDS ORDERED: ONDANSETRON HCL 4MG/2ML INJ IV PRN (15:00)
[2022-12-26] MEDS ORDERED: VANCOMYCIN 500MG PREMIX 100 ML IV NR (15:30)
[2022-12-26] MEDS: ENOXAPARIN 30MG/0.3ML SYR SUBCUT SCH (16:00)
[2022-12-26] MEDS ORDERED: PIPERACILLIN/TAZ 3.375G PREMIX 50 ML IV SCH (17:00)
[2022-12-26] MEDS: DOXYCYCLINE HYCLATE 100MG CAPSULE PO SCH (17:50)
[2022-12-26] MEDS ORDERED: DEXTROSE 50% WATER 50ML SYRINGE IV PRN (20:45)
[2022-12-26] MEDS: BLOOD SUGAR DIAGNOSTIC STRIP TEST SCH (21:06)
[2022-12-26] MEDS: INSULIN LISPRO 100 UNITS/ML SUBCUT SCH (21:06)
[2022-12-27] VITALS (103 sets, daily range): BP systolic 42–161; BP diastolic 22–123
[2022-12-27] MEDS: PHENYLEPHRINE 100 MG in DEXT 5% WATER 240 ML IV PRN (02:04)
[2022-12-27 07:10] LABS: HEMATOCRIT. 34.9 % (36.0-48.0); HEMOGLOBIN. 11.5 g/dL (12.0-16.0); MEAN CORPUSCULAR HEMOGLOBIN 34.3 pg (28.0-32.0); MEAN CORPUSCULAR VOLUME 104.1 fL (81.0-99.0); MEAN PLATELET VOLUME 9.7 fl (7.4-10.4); PLATELET 173 x1000/uL (130-400); RED BLOOD CELL COUNT 3.35 mill/uL (4.2-5.4)
[2022-12-27] MEDS: BLOOD SUGAR DIAGNOSTIC STRIP TEST SCH ×4 (07:50→20:11)
[2022-12-27] MEDS: DOXYCYCLINE HYCLATE 100MG CAPSULE PO SCH ×2 (08:45→16:55)
[2022-12-27] MEDS: INSULIN LISPRO 100 UNITS/ML SUBCUT SCH ×4 (08:47→20:11)
[2022-12-27] MEDS: PANTOPRAZOLE SODIUM 40 MG/VIAL IV SCH (08:48)
[2022-12-27] MEDS: PIPERACILLIN/TAZOBACTAM 3.375 G in DEXTROSE 5% WATER 50 ML IV SCH ×2 (10:02→20:12)
[2022-12-27 10:52] LABS: PLATELET ESTIMATE NORMAL
[2022-12-27 15:24] LABS: HEPATITIS B SURFACE ANTIGEN NEGATIVE
[2022-12-27] MEDS: ENOXAPARIN 30MG/0.3ML SYR SUBCUT SCH (16:56)
[2022-12-27] MEDS: MIDODRINE HCL 5MG TABLET PO SCH (20:12)
[2022-12-27 23:28] LABS: HEPATITIS B SURFACE ANTIGEN NEGATIVE
[2022-12-27] MEDS: CETIRIZINE 10MG TABLET PO SCH (23:43)
[2022-12-28] VITALS (86 sets, daily range): BP systolic 53–154; BP diastolic 17–113
[2022-12-28 06:46] LABS: HEMATOCRIT. 32.9 % (36.0-48.0); HEMOGLOBIN. 10.6 g/dL (12.0-16.0); MEAN CORPUSCULAR HEMOGLOBIN 34.2 pg (28.0-32.0); MEAN CORPUSCULAR VOLUME 105.9 fL (81.0-99.0); PLATELET 160 x1000/uL (130-400); RED BLOOD CELL COUNT 3.11 mill/uL (4.2-5.4)
[2022-12-28] MEDS: BLOOD SUGAR DIAGNOSTIC STRIP TEST SCH ×4 (08:18→21:00)
[2022-12-28] MEDS: PIPERACILLIN/TAZOBACTAM 3.375 G in DEXTROSE 5% WATER 50 ML IV SCH ×2 (09:22→22:00)
[2022-12-28] MEDS: INSULIN LISPRO 100 UNITS/ML SUBCUT SCH ×4 (09:23→21:00)
[2022-12-28] MEDS: CETIRIZINE 10MG TABLET PO SCH (09:23)
[2022-12-28] MEDS: PANTOPRAZOLE SODIUM 40 MG/VIAL IV SCH (09:23)
[2022-12-28] MEDS: MIDODRINE HCL 5MG TABLET PO SCH ×3 (09:23→17:00)
[2022-12-28] MEDS: DOXYCYCLINE HYCLATE 100MG CAPSULE PO SCH ×2 (09:24→17:00)
[2022-12-28] MEDS: ENOXAPARIN 30MG/0.3ML SYR SUBCUT SCH (17:00)
[2022-12-28 17:14] LABS: PLATELET ESTIMATE NORMAL
[2022-12-28] MEDS ORDERED: VANCOMYCIN 500MG PREMIX 100 ML IV NR (18:00)
[2022-12-29] VITALS (9 sets, daily range): BP systolic 59–130; BP diastolic 32–110
[2022-12-29 07:12] LABS: HEMATOCRIT. 31.8 % (36.0-48.0); HEMOGLOBIN. 10.4 g/dL (12.0-16.0); MEAN CORPUSCULAR HEMOGLOBIN 34.1 pg (28.0-32.0); MEAN CORPUSCULAR VOLUME 104.4 fL (81.0-99.0); MEAN PLATELET VOLUME 9.8 fl (7.4-10.4); PLATELET 160 x1000/uL (130-400); RED BLOOD CELL COUNT 3.05 mill/uL (4.2-5.4); RED CELL DISTRIBUTION WIDTH 16.6 % (11.6-14.6)
[2022-12-29] MEDS: DOXYCYCLINE HYCLATE 100MG CAPSULE PO SCH (09:08)
[2022-12-29] MEDS: CETIRIZINE 10MG TABLET PO SCH (09:08)
[2022-12-29] MEDS: PIPERACILLIN/TAZOBACTAM 3.375 G in DEXTROSE 5% WATER 50 ML IV SCH (09:09)
[2022-12-29] MEDS: PANTOPRAZOLE SODIUM 40 MG/VIAL IV SCH (09:09)
[2022-12-29] MEDS ORDERED: MIDODRINE HCL 5MG TABLET PO SCH (11:00)
[2022-12-29] MEDS: BLOOD SUGAR DIAGNOSTIC STRIP TEST SCH (11:40)
[2022-12-29] MEDS: INSULIN LISPRO 100 UNITS/ML SUBCUT SCH (13:16)
[2022-12-29 15:30] LABS: PLATELET ESTIMATE NORMAL
[2022-12-30] MEDS ORDERED: FAMOTIDINE 20MG/2ML VIAL IV SCH (09:00)
== END 2022-12-29 17:35 | disposition home or self-care (01) | DRG 291 ==
LOC: ER 10:05 → CVICU 12:33 → EDBEDREQ 12:36 → EDBEDREQTM 12:36 → EDBEDREQSVC 12:36 → 7EST 12-29 07:00
PROVIDERS: ADMIT Internal Medicine; ATTEND Internal Medicine
PROC: 02HV33Z Insertion of Infusion Device into Superior Vena Cava, Percutaneous Approach (ICD-10-PCS; 2022-12-26)
PROC: B548ZZA Ultrasonography of Superior Vena Cava, Guidance (ICD-10-PCS; 2022-12-26)
PROC: 5A1D70Z Performance of Urinary Filtration, Intermittent, Less than 6 Hours Per Day (ICD-10-PCS; principal; 2022-12-28)
DX: I13.2 Hypertensive heart and chronic kidney disease with heart failure and with stage 5 chronic kidney disease, or end stage renal disease (principal); I50.33 Acute on chronic diastolic (congestive) heart failure; J18.9 Pneumonia, unspecified organism; N18.6 End stage renal disease; E87.20 Acidosis, unspecified; E46 Unspecified protein-calorie malnutrition; D63.8 Anemia in other chronic diseases classified elsewhere; J44.9 Chronic obstructive pulmonary disease, unspecified; E11.22 Type 2 diabetes mellitus with diabetic chronic kidney disease; I27.20 Pulmonary hypertension, unspecified; I95.3 Hypotension of hemodialysis; I34.81 Nonrheumatic mitral (valve) annulus calcification; E78.00 Pure hypercholesterolemia, unspecified; Z20.822 Contact with and (suspected) exposure to COVID-19; Z68.26 Body mass index [BMI] 26.0-26.9, adult; Z99.2 Dependence on renal dialysis; Z87.01 Personal history of pneumonia (recurrent)
CPT/HCPCS: 36415; 36573; 71045; 80048; 80053; 80202; 82533; 82962; 83036; 83605; 84145; 85025; 86705; 86709; 86803; 87340; 87426; 87804; 90935; 93005; 93970; 99291; C1725; C1769; C9113; C9803; J1650; J1815; J2370; J2543; J3370; J7030; J7060